=== PATIENT | female | born 1990 | race Caucasian/White ===

== ENCOUNTER 2024-05-14 18:31 | Emergency (ER) | payer OTHER ==
[2024-05-14 20:31] LABS: Bilirubin Neg (Negative); Blood, Urine 50 (Negative); Clarity Cloudy (Clear); Glucose, Urine (Dipstick) Normal (Negative); Ketone, Urine Negative (Negative); Leukocyte 500 (Negative); Nitrite Positive (Negative); Protein, Urine (Dipstick) 100 mg/dl (Neg-Trace); Specific Gravity, Urine 1.015 (1.005-1.030); pH, Urine 6.5 (5.0-9.0)
[2024-05-14 20:34] LABS: #Monocytes 0.46 10x3/uL (0.0-1.1); #Neutrophils 5.45 10x3/uL (1.5-8.4); %Monocytes 6.1 % (0.0-10.0); %Neutrophils 71.6 % (40.0-75.0); Hemoglobin 12.3 g/dL (12.0-15.5); Mean Corpuscular HGB CONC 32.4 g/dL (32.0-36.0); Mean Corpuscular Hemoglobin 30.2 pg (27.0-33.0); Mean Corpuscular Volume 93.4 fL (81.6-98.3); Mean Platelet Volume 10.9 fL (7.4-10.4); Platelet Count 196 10x3/uL (150-450); Red Blood Cell (RBC) Count 4.07 10x6/uL (3.90-5.03); White Blood Cell (WBC) Count 7.6 10x3/uL (3.5-10.5)
[2024-05-14 20:54] LABS: ALT (SGPT) 12 U/L (8-55); AST (SGOT) 27 U/L (5-34); Albumin 3.3 g/dL (3.5-5.0); Alkaline Phosphatase 82 U/L (40-110); Anion Gap 12 mmol/L (10-20); BUN (Urea Nitrogen) 7 mg/dL (7.0-18.7); Bilirubin, Total 1.5 mg/dL (0.2-1.2); Calc. Creatinine Clearance 0 mL/min (70-130); Calcium 9.3 mg/dL (7.8-10.44); Carbon Dioxide 25 mmol/L (22-29); Chloride 106 mmol/L (98-107); Estimated GFR 123; Globulin 2.8 g/dL (2.4-3.5); Glucose 88 mg/dL (70-105); Lipase 44 U/L (8-78); Magnesium 2.3 mg/dL (1.6-2.6); Potassium 4.4 mmol/L (3.5-5.1); Protein, Total 6.1 g/dL (6.0-8.3); Sodium 139 mmol/L (136-145)
[2024-05-14 21:01] LABS: Bacteria/HPF 4+ HPF (None Seen); CAUTI Indications for Culture Dysuria,urgency,freq; RBC/HPF 0-3 HPF (0-3); Squamous Epithelial 0-3 HPF (0-3); WBC/HPF Greater than 50 HPF (0-3)
[2024-05-14 21:03] LABS: Urine Culture Reflex Yes Yes
[2024-05-14] MEDS ORDERED: Cefuroxime 250 MG TAB PO SCH (21:30)
== END 2024-05-14 21:44 | disposition home or self-care (01) ==
LOC: CSHERS 18:31
DX: N39.0 Urinary tract infection, site not specified (principal); B37.31 Acute candidiasis of vulva and vagina
CPT/HCPCS: 36415; 71045; 80053; 81001; 83690; 83735; 85025; 87077; 87086; 87186; 87428

== ENCOUNTER 2024-05-19 14:02 | Inpatient (IN) | payer OTHER ==
[~2024-05-19 14:02] MED LIST: Iopamidol 370 76% 100 ML VIAL ONE
[2024-05-19 15:10] LABS: ALT (SGPT) 31 U/L (8-55); AST (SGOT) 55 U/L (5-34); Albumin 2.9 g/dL (3.5-5.0); Alkaline Phosphatase 85 U/L (40-110); Anion Gap 13 mmol/L (10-20); BUN (Urea Nitrogen) 8 mg/dL (7.0-18.7); Bilirubin, Total 1.4 mg/dL (0.2-1.2); Calc. Creatinine Clearance 0 mL/min (70-130); Calcium 8.9 mg/dL (7.8-10.44); Carbon Dioxide 24 mmol/L (22-29); Chloride 106 mmol/L (98-107); Estimated GFR 124; Globulin 2.9 g/dL (2.4-3.5); Glucose 87 mg/dL (70-105); Potassium 3.7 mmol/L (3.5-5.1); Protein, Total 5.8 g/dL (6.0-8.3); Sodium 139 mmol/L (136-145)
[2024-05-19 15:21] LABS: #Basophils 0.01 10x3/uL (0.0-0.2); #Eosinophils 0.02 10x3/uL (0.0-0.5); #Monocytes 0.38 10x3/uL (0.0-1.1); #Neutrophils 4.31 10x3/uL (1.5-8.4); %Basophils 0.2 % (0.0-2.0); %Eosinophils 0.3 % (0.0-6.0); %Lymphocytes 17.5 % (18.0-47.0); %Monocytes 6.6 % (0.0-10.0); %Neutrophils 74.9 % (40.0-75.0); Hemoglobin 12.2 g/dL (12.0-15.5); Mean Corpuscular Hemoglobin 29.9 pg (27.0-33.0); Mean Corpuscular Volume 90.7 fL (81.6-98.3); Mean Platelet Volume 11.2 fL (7.4-10.4); Platelet Count 167 10x3/uL (150-450); Red Blood Cell (RBC) Count 4.08 10x6/uL (3.90-5.03); White Blood Cell (WBC) Count 5.8 10x3/uL (3.5-10.5)
[2024-05-19 15:23] LABS: Bilirubin Neg (Negative); Blood, Urine 50 (Negative); Glucose, Urine (Dipstick) Normal (Negative); Ketone, Urine Negative (Negative); Leukocyte 100 (Negative); Nitrite Negative (Negative); Protein, Urine (Dipstick) 15 mg/dl (Neg-Trace); Urobilinogen Normal mg/dL (Less than 2)
[2024-05-19 15:24] LABS: Clarity Hazy (Clear)
[2024-05-19 15:37] LABS: Bacteria/HPF 2+ HPF (None Seen); CAUTI Indications for Culture Pelvic or flank pain; Squamous Epithelial 0-3 HPF (0-3)
[2024-05-19 15:38] LABS: Mucous/LPF 1+ LPF (<2+)
[2024-05-19 15:40] LABS: Urine Culture Reflex No No
[2024-05-19] MEDS ORDERED: Meropenem 1 GM VIAL ONE (17:22)
[2024-05-19] MEDS ORDERED: Ketorolac Tromethamine 30 MG (1 mL) VIAL ONE (17:22)
[2024-05-19] MEDS ORDERED: Ondansetron PF 4 MG/2 ML Vial IVP PRN (20:33)
[2024-05-19] MEDS ORDERED: Acetaminophen 650 MG Suppository PR PRN (20:33)
[2024-05-19] MEDS ORDERED: Bisacodyl 10 MG SUPP PR PRN (20:33)
[2024-05-19 22:13] VITALS: BMI 19.4
[2024-05-19] MEDS: Lactated Ringer's 1,000 ML IV SCH (22:37)
[2024-05-19] MEDS: Fleet Saline Enema 133 ML BOT PR SCH (22:38)
[2024-05-19] MEDS: Ketorolac Tromethamine 30 MG (1 mL) VIAL IVP PRN (22:39)
[2024-05-19] MEDS: Vancomycin 1 GM in Sodium Chloride 0.9% 250 ML 250 ML IVPB SCH (22:42)
[2024-05-19 23:28] LABS: Legionella Urinary Ag Negative (Negative); Strep pneumo Urine Ag NEGATIVE (NEGATIVE)
[2024-05-19] MEDS: Lactated Ringer's 500 ML IV SCH (23:54)
[2024-05-19] MEDS: Azithromycin 500 MG in Sodium Chloride 0.9% 250 ML 250 ML IVPB SCH (23:55)
[2024-05-19] MEDS: Senokot S 8.6-50 MG TAB PO SCH (23:55)
[2024-05-20] MEDS: Meropenem 1 GM in Sodium Chloride 0.9% 100 ML IVPB SCH (01:15)
[2024-05-20] MEDS: Acetaminophen 325 MG TAB PO SCH (01:16)
[2024-05-20 04:44] LABS: #Eosinophils 0.03 10x3/uL (0.0-0.5); #Monocytes 0.53 10x3/uL (0.0-1.1); #Neutrophils 2.79 10x3/uL (1.5-8.4); %Eosinophils 0.7 % (0.0-6.0); %Lymphocytes 19.8 % (18.0-47.0); %Monocytes 12.6 % (0.0-10.0); %Neutrophils 66.7 % (40.0-75.0); Hemoglobin 10.8 g/dL (12.0-15.5); Mean Corpuscular HGB CONC 33.8 g/dL (32.0-36.0); Mean Corpuscular Hemoglobin 30.3 pg (27.0-33.0); Mean Corpuscular Volume 89.9 fL (81.6-98.3); Mean Platelet Volume 11.9 fL (7.4-10.4); Platelet Count 135 10x3/uL (150-450); Red Blood Cell (RBC) Count 3.56 10x6/uL (3.90-5.03); White Blood Cell (WBC) Count 4.2 10x3/uL (3.5-10.5)
[2024-05-20 04:50] LABS: ALT (SGPT) 25 U/L (8-55); AST (SGOT) 44 U/L (5-34); Albumin 2.5 g/dL (3.5-5.0); Alkaline Phosphatase 64 U/L (40-110); Anion Gap 16 mmol/L (10-20); BUN (Urea Nitrogen) 5 mg/dL (7.0-18.7); Calc. Creatinine Clearance 113 mL/min (70-130); Calcium 7.8 mg/dL (7.8-10.44); Carbon Dioxide 18 mmol/L (22-29); Chloride 111 mmol/L (98-107); Estimated GFR 129; Globulin 2.2 g/dL (2.4-3.5); Glucose 74 mg/dL (70-105); Protein, Total 4.7 g/dL (6.0-8.3); Sodium 141 mmol/L (136-145)
[2024-05-20 06:48] LABS: Giant Platelets SLIGHT HPF (0-5); RBC Morph Comment Within Normal Limits
[2024-05-20 06:49] LABS: Large Platelets SLIGHT (None Seen); Platelet Adequacy Comment Appears Decreased
[2024-05-20] MEDS: Lactated Ringer's 1,000 ML IV SCH (06:57)
[2024-05-20] MEDS: Famotidine/PF 20 mg/2ml Vial SLOW IVP SCH (09:50)
[2024-05-20] MEDS: Polyethylene Glycol 3350 17 GM Packet PO SCH (09:50)
[2024-05-20] MEDS: Enoxaparin 40 MG (0.4 mL) SYRINGE SC SCH (09:54)
[2024-05-20] MEDS ORDERED: Morphine 2 MG/ML VIAL SLOW IVP PRN (16:18)
[2024-05-20] MEDS: cefTRIAXone\\ROCEPHIN 1 GM in Sodium Chloride 0.9% 100 ML IVPB SCH (16:49)
[2024-05-20] MEDS: Sodium Chloride 0.45% 1,000 ML IV SCH (16:55)
[2024-05-20] MEDS ORDERED: Fluconazole 100 MG TAB PO SCH (21:00)
[2024-05-20] MEDS: Fluconazole 40 mg/ml Oral Suspension PO SCH (21:36)
[2024-05-21] MEDS: Enoxaparin 30 MG (0.3 mL) SYRINGE SC SCH (09:21)
[2024-05-21] MEDS: Ketoconazole 2% Cream 15 gm Tube TOP SCH (09:34)
[2024-05-21] MEDS: Dextrose 5%-Lactated Ringers 1,000 ML IV SCH (11:01)
[2024-05-21] MEDS: cefTRIAXone\\ROCEPHIN 2 GM in Sodium Chloride 0.9% 100 ML IVPB SCH (17:16)
[2024-05-22] MEDS: Acetaminophen 650 MG/20.3 ML UDCUP PO PRN (00:06)
[2024-05-22 08:43] LABS: #Eosinophils 0.03 10x3/uL (0.0-0.5); #Monocytes 0.38 10x3/uL (0.0-1.1); #Neutrophils 3.04 10x3/uL (1.5-8.4); %Eosinophils 0.6 % (0.0-6.0); %Lymphocytes 28.6 % (18.0-47.0); %Monocytes 7.8 % (0.0-10.0); Hematocrit 33.3 % (34.9-44.5); Hemoglobin 11.1 g/dL (12.0-15.5); Mean Corpuscular HGB CONC 33.3 g/dL (32.0-36.0); Mean Platelet Volume 11.4 fL (7.4-10.4); Platelet Count 178 10x3/uL (150-450); RBC Distribution Width 13.8 % (11.5-14.5); White Blood Cell (WBC) Count 4.9 10x3/uL (3.5-10.5)
[2024-05-22 08:53] LABS: Anion Gap 11 mmol/L (10-20); BUN (Urea Nitrogen) Less than 4 mg/dL (7.0-18.7); Calc. Creatinine Clearance 107 mL/min (70-130); Calcium 8.9 mg/dL (7.8-10.44); Carbon Dioxide 29 mmol/L (22-29); Chloride 106 mmol/L (98-107); Estimated GFR 127; Glucose 109 mg/dL (70-105); Potassium 3.5 mmol/L (3.5-5.1); Sodium 142 mmol/L (136-145)
[2024-05-22] MEDS: Famotidine 20 MG TAB PO SCH (22:10)
[2024-05-23 04:18] LABS: #Basophils 0.01 10x3/uL (0.0-0.2); #Eosinophils 0.11 10x3/uL (0.0-0.5); #Monocytes 0.38 10x3/uL (0.0-1.1); %Basophils 0.2 % (0.0-2.0); %Eosinophils 1.8 % (0.0-6.0); %Lymphocytes 26.9 % (18.0-47.0); %Monocytes 6.2 % (0.0-10.0); %Neutrophils 63.9 % (40.0-75.0); Hematocrit 32.9 % (34.9-44.5); Hemoglobin 10.9 g/dL (12.0-15.5); Mean Corpuscular HGB CONC 33.1 g/dL (32.0-36.0); Mean Corpuscular Hemoglobin 29.9 pg (27.0-33.0); Mean Corpuscular Volume 90.1 fL (81.6-98.3); Mean Platelet Volume 11.2 fL (7.4-10.4); Platelet Count 190 10x3/uL (150-450); RBC Distribution Width 13.9 % (11.5-14.5); Red Blood Cell (RBC) Count 3.65 10x6/uL (3.90-5.03); White Blood Cell (WBC) Count 6.1 10x3/uL (3.5-10.5)
[2024-05-23 04:30] LABS: Anion Gap 12 mmol/L (10-20); BUN (Urea Nitrogen) Less than 4 mg/dL (7.0-18.7); Calc. Creatinine Clearance 111 mL/min (70-130); Calcium 8.5 mg/dL (7.8-10.44); Carbon Dioxide 26 mmol/L (22-29); Chloride 107 mmol/L (98-107); Estimated GFR 128; Glucose 91 mg/dL (70-105); Potassium 3.5 mmol/L (3.5-5.1); Sodium 141 mmol/L (136-145)
[2024-05-23 08:11] VITALS: BP 103/77; TEMP 98.6
== END 2024-05-23 11:20 | disposition home or self-care (01) | DRG 872 ==
LOC: CSHERS 14:02 → CSHTELE 20:20
PROVIDERS: ADMIT Student in an Organized Health Care Education/Training Program; ATTEND Internal Medicine
PROC: 0T9B70Z Drainage of Bladder with Drainage Device, Via Natural or Artificial Opening (ICD-10-PCS; principal; 2024-05-19)
PROC: 3E03329 Introduction of Other Anti-infective into Peripheral Vein, Percutaneous Approach (ICD-10-PCS; 2024-05-19)
DX: A41.9 Sepsis, unspecified organism (principal); N13.6 Pyonephrosis; E44.0 Moderate protein-calorie malnutrition; Q87.19 Other congenital malformation syndromes predominantly associated with short stature; E86.0 Dehydration; K62.89 Other specified diseases of anus and rectum; B35.0 Tinea barbae and tinea capitis; R41.89 Other symptoms and signs involving cognitive functions and awareness; R53.81 Other malaise; Z88.2 Allergy status to sulfonamides; Z98.890 Other specified postprocedural states; Z79.899 Other long term (current) drug therapy
CPT/HCPCS: 36415; 51701; 71045; 71260; 74177; 80048; 80053; 81001; 83605; 85025; 87040; 87070; 87077; 87086; 87186; 87205; 87428; 87449; 87899; 96361; 96374; 96375; J0456; J0696; J1650; J1885; J2185; J3370; J3490; J7050; J7120; Q9967